=== PATIENT | male | born 1965 | race Two or more races ===

== ENCOUNTER 2017-02-20 09:47 | Emergency (ER) | payer BC, OTHER ==
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
[2017-02-20 11:57] VITALS: BP 135/91
== END 2017-02-20 12:46 | disposition home or self-care (01) ==
LOC: ER 09:47
DX: M54.5 Low back pain (principal); R20.0 Anesthesia of skin; V43.52XA Car driver injured in collision with other type car in traffic accident, initial encounter; I10 Essential (primary) hypertension; Z87.892 Personal history of anaphylaxis; Z88.0 Allergy status to penicillin
CPT/HCPCS: 72110; 99284

== ENCOUNTER 2017-08-16 03:54 | Emergency (ER) | payer OTHER ==
[2017-08-16] MEDS ORDERED: DEXAMETHASONE SOD PHOS INJ 10 MG/1 ML VIAL IM ONE (04:11)
[2017-08-16] MEDS ORDERED: CLINDAMYCIN HCL 150 MG CAPSULE PO ONE (05:16)
--- NOTE | 2017-08-16 05:23 | ER Document Report ---
ED General - General Chief Complaint: Difficulty Swallowing Stated Complaint: BREATHING DIFFICULTY Time Seen by Provider: 08/16/17 04:11 Notes: Patient is 51-year-old male who presents with complaint of throat swelling. Patient says that this is the third time it happened this month. He says the first 2 times he swelled up and it went away on its own and therefore he was more concerned. Said tonight it has not gone away and therefore is come to the ER. He says it feels as if it may be causing a little bit difficulty breathing. He is able to handle secretions without any difficulty. He denies any noisy breathing. He denies any fevers. He denies any changes in his medications. He is on amlodipine and losartan for high blood pressure. Denies any abnormal chemical exposure to his throat. TRAVEL OUTSIDE OF THE [place] IN LAST 30 DAYS: No - Related Data Allergies/Adverse Reactions: Penicillins Allergy (Severe, Verified 02/20/17 09:51) Anaphylaxis Past Medical History - Social History Smoking Status: Never Smoker Chew tobacco use (# tins/day): No Frequency of alcohol use: None Drug Abuse: None Family History: Reviewed & Not Pertinent Patient has suicidal ideation: No Patient has homicidal ideation: No - Past Medical History Cardiac Medical History: Reports: Hx Hypertension Renal/ Medical History: Denies: Hx Peritoneal Dialysis Past Surgical History: Reports: Hx Orthopedic Surgery - left foot, ankle, and L knee scope - Immunizations Hx Diphtheria, Pertussis, Tetanus Vaccination: No Review of Systems - Review of Systems Notes: My Normal Review Basic REVIEW OF SYSTEMS: CONSTITUTIONAL : Denies fever, chills, or sweats. Denies recent illness. EENT: Feels as if the back top part of his throat is swollen. CARDIOVASCULAR: Denies chest pain. RESPIRATORY: Denies cough, cold, or chest congestion. Denies shortness of breath, difficulty breathing, or wheezing. GASTROINTESTINAL: Denies abdominal pain. Denies nausea, vomiting, or diarrhea. Denies constipation. Last BM: MUSCULOSKELETAL: Denies neck or back pain or joint pain or swelling. SKIN: Denies rash or skin lesions. NEUROLOGICAL: Denies altered mental status or loss of consciousness. Denies headache. ALL OTHER SYSTEMS REVIEWED AND NEGATIVE. Physical Exam - Vital signs Vitals: Temp Pulse Resp BP Pulse Ox 98.4 F 83 18 144/87 H 97 08/16/17 04:00 08/16/17 04:00 08/16/17 04:00 08/16/17 04:00 08/16/17 04:00 - Notes Notes: General Appearance: Well nourished, alert, cooperative, no acute distress, no obvious discomfort. Well-appearing. Patient is able keep his head in normal position without any stridor or difficulty breathing. No drooling. Normal voice. Vitals: reviewed, See vital signs table. Head: no swelling or tenderness to the head Eyes: PERRL, EOMI, Conjuctiva clear Mouth: No decreasd moisture Throat: enlarged swollen uvula with some mild erythema. Neck: Supple, no neck tenderness, Extremities: good pulses in all extremities Skin: warm, dry, appropriate color, no rash Neuro: speech clear, oriented x 3, normal affect, responds appropriately to questions. Course - Re-evaluation Re-evalutation: 08/16/17 05:[address] Gtz, ENT physician at [facility]. He agrees to see the patient today in office at 12:45 PM. I explained the plan to the patient he is agreeable to it. Patient does have uvulitis. Is not causing airway obstruction at this time and he does not show signs of impending airway obstruction however I feel is more appropriate for him to be evaluated by ENT today as opposed to waiting over the weekend until Saturday and his uvula does increase in size. Informed patient he still wants to have a low threshold to return to ER immediately if he has increasing swelling in his throat, increasing pain, difficulty breathing, difficulty swallowing, fevers, or if he feels that he is worsening in any way. Patient agrees with plan and will be discharged home. Dictation of this chart was performed using voice recognition software; therefore, there may be some unintended grammatical errors. - Vital Signs Vital signs: Temp Pulse Resp BP Pulse Ox 98.4 F 83 18 140/93 H 97 08/16/17 04:00 08/16/17 04:00 08/16/17 04:00 08/16/17 04:13 08/16/17 05:00 Discharge - Discharge Clinical Impression: Uvulitis Condition: Good Disposition: HOME, SELF-CARE Additional Instructions: You have a swollen uvula. The cause of a swollen uvula can include infection ( bacterial or viral), allergic reaction, or irritation from a chemical exposure. Your strep swab is negative, but sometimes there are other bacteria that can cause a swollen uvula. I have therefore placed you on an antibiotic. Please take the antibiotic as prescribed. Please return to the ER immediately if you have trouble breathing, noisy breathing, fevers, tongue swelling, lip swelling, or feel that you are worsening in any way. I have spoken with dr. Gtz, ENT physician in [place]. He agrees to see you in the office today at 12:45pm. He said to just be at his office at 12:45pm so he can evaluate you. The office address is [address] [place] [address]. Prescriptions: Clindamycin HCl 300 mg PO ASDIR #56 capsule Forms: Return to Work Referrals: ETTA GTZ MD [NO LOCAL MD] - 08/16/17 (Today at 12:45pm.)
[2017-08-16 05:51] VITALS: BP 128/87
== END 2017-08-16 05:55 | disposition home or self-care (01) ==
LOC: ER 03:54
DX: K12.2 Cellulitis and abscess of mouth (principal); R13.10 Dysphagia, unspecified; I10 Essential (primary) hypertension; Z79.899 Other long term (current) drug therapy; Z87.892 Personal history of anaphylaxis; Z88.0 Allergy status to penicillin
CPT/HCPCS: 99284; 96372; 87070; 87880; J1100

== ENCOUNTER 2018-12-29 18:56 | Emergency (ER) | payer OTHER ==
[2018-12-29] MEDS ORDERED: KETOROLAC TROMETHAMINE 60 MG/2 ML SDV IM ONE (19:19)
--- NOTE | 2018-12-29 19:22 | ER Document Report ---
ED Medical Screen (RME) - General Chief Complaint: Back Pain Stated Complaint: BACK PAIN Time Seen by Provider: 12/29/18 19:14 Primary Care Provider: ETTA DOOLEY PA [Primary Care Provider] - Follow up as needed Mode of Arrival: Wheelchair Information source: Patient Notes: 53-year-old male presents emergency department with severe lower back pain. Reports he got up to go the bathroom this morning and started hurting pain. Reports he goes on his back buttocks and his right thigh is numb. Reports he has had this pain before is taking muscle relaxers diclofenac but nothing is helping with the pain. Reports he is in such severe pain that he cannot walk. Denies urinary bowel incontinence or retention. Denies injury. I have greeted and performed a rapid initial assessment of this patient. A comprehensive ED assessment and evaluation of the patient, analysis of test results and completion of the medical decision making process will be conducted by additional ED providers. Dictation of this chart was performed using voice recognition software; therefore, there may be some unintended grammatical errors. TRAVEL OUTSIDE OF THE [place] IN LAST 30 DAYS: No - Related Data Allergies/Adverse Reactions: Penicillins Allergy (Severe, Verified 02/20/17 09:51) Anaphylaxis Past Medical History - Social History Frequency of alcohol use: None Drug Abuse: None - Past Medical History Cardiac Medical History: Reports: Hx Hypertension Renal/ Medical History: Denies: Hx Peritoneal Dialysis Past Surgical History: Reports: Hx Orthopedic Surgery - left foot, ankle, and L knee scope - Immunizations Hx Diphtheria, Pertussis, Tetanus Vaccination: No Physical Exam - Vital signs Vitals: Temp Pulse BP Pulse Ox 98.5 F 77 135/85 H 99 12/29/18 19:02 12/29/18 19:02 12/29/18 19:02 12/29/18 19:02 Course - Vital Signs Vital signs: Temp Pulse Resp BP Pulse Ox 98.5 F 77 135/85 H 99 12/29/18 19:02 12/29/18 19:02 12/29/18 19:02 12/29/18 19:02 Doctor's Discharge - Discharge Referrals: ETTA DOOLEY PA [Primary Care Provider] - Follow up as needed
[2018-12-29] MEDS ORDERED: CYCLOBENZAPRINE HCL 10 MG TABLET PO ONE (23:45)
--- NOTE | 2018-12-29 23:53 | ER Document Report ---
ED General - General Chief Complaint: Back Pain Stated Complaint: BACK PAIN Time Seen by Provider: 12/29/18 19:14 Primary Care Provider: ETTA DOOLEY PA [Primary Care Provider] - Follow up as needed Mode of Arrival: Wheelchair TRAVEL OUTSIDE OF THE [place] IN LAST 30 DAYS: No - HPI Notes: Patient is a 53-year-old male presents emergency department for evaluation of lower back pain. It is a chronic pain, but it got worsened today when he went to get to the bathroom. He denies any bowel or bladder incontinence, saddle anesthesia, no focal weakness. He states is across his lower back, radiates intermittently into his upper back and then into his right buttock and down his leg. He states his right anterior thigh has a numb and tingling sensation. - Related Data Allergies/Adverse Reactions: Penicillins Allergy (Severe, Verified 02/20/17 09:51) Anaphylaxis Home Medications: Losartan, amlodipine, Zoloft Past Medical History - General Information source: Patient - Social History Smoking Status: Never Smoker Frequency of alcohol use: None Drug Abuse: None Family History: Reviewed & Not Pertinent Patient has suicidal ideation: No Patient has homicidal ideation: No - Past Medical History Cardiac Medical History: Reports: Hx Hypertension Renal/ Medical History: Denies: Hx Peritoneal Dialysis Psychiatric Medical History: Reports: Hx Depression Past Surgical History: Reports: Hx Orthopedic Surgery - left foot, ankle, and L knee scope - Immunizations Hx Diphtheria, Pertussis, Tetanus Vaccination: No Review of Systems - Review of Systems Constitutional: No symptoms reported EENT: No symptoms reported Cardiovascular: No symptoms reported Respiratory: No symptoms reported Gastrointestinal: No symptoms reported Genitourinary: No symptoms reported Musculoskeletal: See HPI Skin: No symptoms reported Neurological/Psychological: No symptoms reported Physical Exam - Vital signs Vitals: Temp Pulse BP Pulse Ox 98.5 F 77 135/85 H 99 12/29/18 19:02 12/29/18 19:02 12/29/18 19:02 12/29/18 19:02 - Notes Notes: Vital signs reviewed, please refer to chart. Head is normocephalic, atraumatic. Pupils equal round, reactive to light. Neck is supple without meningismus. Heart is regular rate and rhythm. Lungs are clear to auscultation bilaterally. Abdomen is soft, nontender, normoactive bowel sounds throughout. Examination of the spine yields no midline tenderness or step-off. No significant paraspinal musculature tenderness is appreciated. Negative straight leg raise bilaterally. Patient is unable to relax enough for full reflex testing. Sensation is diminished to light touch on the anterior right thigh per patient. Strength is plus 5 out of 5 bilateral lower extremities. Extremities without cyanosis, clubbing. Posterior calves are nontender. Peripheral pulses are equal. Skin is warm and dry. Patient is awake, alert, neurological exam is nonfocal. Course - Re-evaluation Re-evalutation: 12/29/18 23:49 Patient presents emergency department for evaluation. He has an exacerbation of his chronic back pain. He was administered Toradol. I did again give him some Flexeril. We now have a chronic pain policy which prevents any narcotic treatment of this pain at this point. I explained to the patient that his best mode of treatment would be to follow-up with his primary care provider, seek out referral for physical therapy and/or MRI. He does not have any red flag symptoms at this time. I will then send him home with prescription strength anti-inflammatories and muscle relaxers. He is to return to the ED with worsening. - Vital Signs Vital signs: Temp Pulse Resp BP Pulse Ox 98.5 F 77 135/85 H 99 12/29/18 19:02 12/29/18 19:02 12/29/18 19:02 12/29/18 19:02 Discharge - Discharge Clinical Impression: Acute exacerbation of chronic low back pain Condition: Stable Disposition: HOME, SELF-CARE Instructions: Low Back Pain ([facility]) Additional Instructions: Moist heat to the lower back. Avoid lifting anything heavier than 5 pounds. Take medications as prescribed, watching for drowsiness with the Flexeril. Follow-up with your doctor this week. You should discuss possible physical therapy referral and/or MRI. Return to the ED with worsening or new concerning symptoms of any sort. Referrals: ETTA DOOLEY PA [Primary Care Provider] - Follow up as needed
[2018-12-30 00:04] VITALS: BP 132/83
== END 2018-12-30 00:23 | disposition home or self-care (01) ==
LOC: ER 18:56
DX: G89.29 Other chronic pain (principal); M54.5 Low back pain; R20.0 Anesthesia of skin; Z88.0 Allergy status to penicillin
CPT/HCPCS: 99283; 96372; J1885

== ENCOUNTER → 2019-01-06 | Outpatient (CLI) | payer OTHER ==
--- NOTE | 2019-01-06 16:22 | RADIOLOGY REPORT (SQ) ---
EXAM DESCRIPTION: CT LT LOWER EXTREMITY WITHOUT COMPLETED DATE/TIME: 01/06/2019 11:00 am REASON FOR STUDY: LEFT ANKLE PAIN (M25.572) COMPARISON: None. TECHNIQUE: Axial imaging performed through the Left ankle with reformatted coronal and sagittal imaging windowed for bone and soft tissues. Images saved to PAC S. 3D IMAGING: Were 3D images as MIP, SSD, or volume rendering performed at the work station? No LIMITATIONS: None. FINDINGS: SOFT TISSUES: Diffuse subcutaneous edema. BONY STRUCTURES: No fracture dislocation. Moderate degenerative changes in the ankle and subtalar kellie ints. MINERALIZATION: Osteopenia. OTHER: No other significant finding. IMPRESSION: Degenerative changes. No evidence of fracture or osteomyelitis. Reading location - IP/workstation name: [email or web address]
== END ==
LOC: RAD 10:34
PROVIDERS: ATTEND Physician Assistant Medical
DX: M25.572 Pain in left ankle and joints of left foot (principal)

== ENCOUNTER 2019-07-24 05:18 | Emergency (ER) | payer OTHER ==
--- NOTE | 2019-07-24 06:27 | ER Document Report ---
ED General - General Chief Complaint: Breathing Difficulty Stated Complaint: SHORTNESS OF BREATH Primary Care Provider: ETTA DOOLEY PA [Primary Care Provider] - Follow up as needed Notes: Patient is a 53-year-old male with a history of hypertension and elongated uvula pending plan for surgical correction by ENT who presents to the emergency department today with a chief complaint of sudden onset shortness of breath. Patient states this is happened before. He states that he fell asleep in the living room and early this morning his fiance woke him and they went to the bedroom to go to sleep. He states that he could not fall back asleep, "I could not get my mind right". He states that he was playing on his phone and then suddenly felt a sensation of shortness of breath.. He also noticed that he had some stuffiness in the nasal passages and "sinus". He denies any recent illness, fever or nausea or vomiting or diarrhea or chills or night sweats. He still admits to a vague sensation of shortness of breath but it has improved. He denies any cough or chest pain. No new lower extremity pain or swelling, has chronic left lower extremity swelling from a prior ankle replacement. Denies history of DVT or PE. Denies hemoptysis. Denies recent travel, recent surgery or recent immobilization. No sick contacts. TRAVEL OUTSIDE OF THE [place] IN LAST 30 DAYS: No - Related Data Allergies/Adverse Reactions: Penicillins Allergy (Severe, Verified 07/24/19 05:41) Anaphylaxis Past Medical History - Social History Smoking Status: Never Smoker Frequency of alcohol use: None Drug Abuse: None Family History: Reviewed & Not Pertinent Patient has homicidal ideation: No - Past Medical History Cardiac Medical History: Reports: Hx Hypertension Renal/ Medical History: Denies: Hx Peritoneal Dialysis Psychiatric Medical History: Reports: Hx Depression Past Surgical History: Reports: Hx Orthopedic Surgery - left foot, ankle, and L knee scope - Immunizations Hx Diphtheria, Pertussis, Tetanus Vaccination: No Review of Systems - Review of Systems EENT: Nose congestion Respiratory: Short of breath -: Yes All other systems reviewed and negative Physical Exam - Vital signs Vitals: Temp Pulse Resp BP Pulse Ox 98.3 F 103 H 18 151/84 H 96 07/24/19 05:31 07/24/19 05:31 07/24/19 05:31 07/24/19 05:31 07/24/19 05:31 - General General appearance: Appears well, Alert In distress: None - HEENT Head: Normocephalic, Atraumatic Eyes: Normal Conjunctiva: Normal Extraocular movements intact: Yes Pupils: PERRL Ears: Normal External canal: Normal Tympanic membrane: Normal Nasal: Other - Edematous nasal turbinates bilaterally, left worse than right however nares are patent. Mucous membranes: Normal Pharynx: Other - Elongated uvula, no uvula edema or erythema. Airway patent. Handling secretions well. No sublingual or submental swelling. No trismus. Neck: Normal - Respiratory Respiratory status: No respiratory distress Chest status: Nontender Breath sounds: Normal Chest palpation: Normal - Cardiovascular Rhythm: Regular Heart sounds: Normal auscultation - Extremities General lower extremity: Other - Scarring to the left lower ankle from prior surgery. Chronic left lower extremity edema. Nontender calves bilaterally - Neurological Neuro grossly intact: Yes Cognition: Normal Orientation: AAOx4 - Psychological Associated symptoms: Normal affect, Normal mood - Skin Skin Temperature: Warm Skin Moisture: Dry Skin Color: Normal Course - Re-evaluation Re-evalutation: 07/24/19 07:34 After further discussion with the results with the patient he divulges deeper into his current situation. He states that he has been going through some thin gs lately and he is noticed increased feelings of anxiety from time to time more recently. States he is not used to feeling these feelings. He does admit that he is currently in counseling with a therapist but he has not mentioned this to the therapist. He denies any thoughts of suicide or homicide. Denies any delusions or hallucinations patient states that he feels a sense of panic. He request that we help him with the sensation. Is a negative troponin and negative d-dimer. EKG was sinus tachycardia at 105 bpm, normal intervals. No STEMI. Interpreted by ED attending. Patient does not have any chest pain. He does not physically appear short of breath. He is resting comfortably in the room though he does seem anxious. No labored respirations. Lung sounds were clear to auscultation bilaterally. He does not have uvulitis at this time but does appear to have a chronically elongated uvula. He complains of some sinus congestion symptoms/nasal congestion which I feel are likely unrelated. Patient will be given Vistaril 50 mg here and sent home with a prescription for Vistaril to continue as needed for anxiety. He will discuss these feelings with his counselor as we recommended in our discussion. I discussed with him the importance of outpatient follow-up and advised that he return here or any ER immediately with any new, persistent or worsening symptoms. He verbalized understood and agreed. 07/24/19 07:36 - Vital Signs Vital signs: Temp Pulse Resp BP Pulse Ox 98.5 F 99 18 142/84 H 98 07/24/19 07:19 07/24/19 07:19 07/24/19 07:19 07/24/19 07:19 07/24/19 07:19 - Laboratory Result Diagrams: 07/24/19 06:35 07/24/19 06:35 Laboratory results interpreted by me: 07/24/19 07/24/19 06:35 06:35 RBC 5.75 H Hgb 17.4 H Glucose 141 H Creatine Kinase 205 H Discharge - Discharge Clinical Impression: Anxiety Condition: Stable Disposition: HOME, SELF-CARE Instructions: Anxiety (OM) Additional Instructions: Follow-up with your regular doctor in 2 to 3 days for reevaluation. Return here or any ER immediately with any new, persistent or worsening symptoms. Prescriptions: Hydroxyzine Pamoate [Vistaril 25 mg Capsule] 1 - 2 cap PO Q6 PRN #30 capsule PRN Reason: Referrals: ETTA DOOLEY PA [Primary Care Provider] - Follow up as needed
[2019-07-24 06:47] LABS: ABSOLUTE BASOPHILS # (AUTO) 0.1 10^3/uL (0.0-0.2); ABSOLUTE EOSINOPHILS # (AUTO) 0.3 10^3/uL (0.0-0.6); ABSOLUTE LYMPHOCYTES (AUTO) 2.7 10^3/uL (0.5-4.7); ABSOLUTE MONOCYTES (AUTO) 0.6 10^3/uL (0.1-1.4); ABSOLUTE NEUT (AUTO) 5.4 10^3/uL (1.7-8.2); BASOPHILS % (AUTO) 0.9 % (0-2); EOSINOPHILS % (AUTO) 3.2 % (0-6); HEMATOCRIT 50.9 % (37.9-51.0); HEMOGLOBIN 17.4 g/dL (13.5-17.0); LYMPHOCYTES % (AUTO) 29.8 % (13-45); MEAN CORPUSCULAR HEMOGLOBIN 30.3 pg (27.0-33.4); MEAN CORPUSCULAR HGB CONC 34.2 g/dL (32.0-36.0); MEAN CORPUSCULAR VOLUME 89 fl (80-97); PLATELET COUNT 239 10^3/uL (150-450); RED BLOOD COUNT 5.75 10^6/uL (4.35-5.55); RED CELL DISTRIBUTION WIDTH 13.5 % (11.5-14.0); SEGMENTED NEUTROPHILS % (AUTO) 59.1 % (42-78); TOTAL CELLS COUNTED % (AUTO) 100 %; WHITE BLOOD COUNT 9.2 10^3/uL (4.0-10.5)
[2019-07-24 06:48] LABS: INTERNATIONAL RATION (INR) 0.97; PROTHROMBIN TIME 12.9 SEC (11.4-15.4)
[2019-07-24 06:49] LABS: PARTIAL THROMBOPLASTIN TIME 26.5 SEC (23.5-35.8)
[2019-07-24 06:51] LABS: D-DIMER 0.46 ug/mL (0.00-0.50)
[2019-07-24 07:01] LABS: ALBUMIN 4.9 g/dL (3.5-5.0); ALKALINE PHOSPHATASE 82 U/L (38-126); ANION GAP 11 (5-19); ASPARTATE AMINO TRANSFERASE 37 U/L (17-59); BILIRUBIN,TOTAL 0.5 mg/dL (0.2-1.3); BLOOD UREA NITROGEN 17 mg/dL (7-20); CALCIUM 9.9 mg/dL (8.4-10.2); CARBON DIOXIDE 27 mmol/L (22-30); CHLORIDE 103 mmol/L (98-107); CREATINE KINASE 205 U/L (55-170); GLUCOSE 141 mg/dL (75-110); POTASSIUM 3.6 mmol/L (3.6-5.0)
--- NOTE | 2019-07-24 07:20 | RADIOLOGY REPORT (SQ) ---
EXAM DESCRIPTION: XR CHEST 1 VIEW COMPLETED DATE/TME: 07/24/2019 06:17 CLINICAL HISTORY: sob COMPARISON: None. FINDINGS: Single frontal view of the chest. Cardiomediastinal silhouette: Normal size and contour. Lungs: No consolidation, pneumothorax, or pleural effusion. Bones: No acute osseous abnormality. Upper abdomen: No abnormality identified. IMPRESSION: 1. No acute pulmonary process identified.
[2019-07-24 07:23] VITALS: BP 142/84
[2019-07-24] MEDS ORDERED: HYDROXYZINE PAMOATE 50 MG CAPSULE PO ONE (07:38)
--- NOTE | 2019-07-25 09:47 | EKG REPORT ---
SEVERITY:- OTHERWISE NORMAL ECG - SINUS TACHYCARDIA : Confirmed by: Felecia Deshpande MD 25-Jul-2019 09:45:30
== END 2019-07-24 07:54 | disposition home or self-care (01) ==
LOC: ER 05:18
DX: F41.9 Anxiety disorder, unspecified (principal); R06.02 Shortness of breath; I10 Essential (primary) hypertension; R09.81 Nasal congestion
CPT/HCPCS: 36415; 71045; 80053; 82550; 84484; 85025; 85379; 85610; 85730; 93005; 93010; 99284